=== PATIENT | female | born 1955 | race Caucasian/White ===

== ENCOUNTER 2023-08-18 00:31 | Inpatient (IN) | payer BC, MEDICAID ==
[~2023-08-18] VITALS: Ht 157.5 cm; Wt 73.0 kg
[2023-08-18 01:00] VITALS: BP 60/40; PULSE 62; RESP 16; TEMP 97.3; O2SAT 99
[2023-08-18 01:29] LABS: BASOPHILS # (AUTO) 0.1 K/uL (0.00-0.22); BASOPHILS % (AUTO) 1.3 % (0.0-2.0); EOSINOPHILS # (AUTO) 0.1 K/uL (0-0.4); EOSINOPHILS % (AUTO) 1.5 % (0.0-4.0); HEMATOCRIT 28.5 % (36-48); HEMOGLOBIN 9.8 g/dL (12.0-16.0); LYMPHOCYTES # (AUTO) 1.4 K/uL (2.5-16.5); LYMPHOCYTES % (AUTO) 18.4 % (20.5-51.1); MEAN CORPUSCULAR HEMOGLOBIN 27 pg (27-31); MEAN CORPUSCULAR HGB CONC 34 g/dL (33-37); MONOCYTES # (AUTO) 0.8 K/uL (0.8-1.0); NEUTROPHILS # (AUTO) 5.2 K/uL (1.8-7.7); NEUTROPHILS % (AUTO) 68.8 % (42.2-75.2); PLATELET COUNT (AUTO) 218 K/uL (140-450); RED BLOOD CELL COUNT(AUTO) 3.56 MIL/uL (4.20-5.40); RED CELL DISTRIBUTION WIDTH 15.7 % (11.6-13.7); WHITE BLOOD COUNT (AUTO) 7.6 K/uL (4.8-10.8)
[2023-08-18] MEDS: NACL 0.9% 2,000 ML IV ONE (01:36)
[2023-08-18 01:39] LABS: ANION GAP 15.2 (8-16); CALCIUM 9.4 mg/dL (8.5-10.1); CARBON DIOXIDE 24.6 mmol/L (21-32); CREATININE 1.8 mg/dL (0.6-1.3); POTASSIUM 3.8 mmol/L (3.5-5.1)
[2023-08-18 01:41] LABS: INR 1.07 (0.8-1.2); PROTHROMBIN TIME 11.2 secs (10.8-13.4)
[2023-08-18 01:48] LABS: ALANINE AMINOTRANSFERASE 33 U/L (12-78); ALBUMIN 3.9 g/dL (3.4-5.0); ALKALINE PHOSPHATASE 67 U/L (50-136); ASPARTATE AMINOTRANSFERASE 31 U/L (15-37); BILIRUBIN,DIRECT 0.1 mg/dL (0.0-0.3); LACTIC ACID 1.3 mmol/L (0.4-2.0); TOTAL BILIRUBIN 0.3 mg/dL (0.0-1.0)
[2023-08-18] MEDS ORDERED: [UNRECOGNIZED DRUG - CODE] PO (04:24)
[2023-08-18] MEDS ORDERED: FENO130C9 PO (04:29)
[2023-08-18] MEDS ORDERED: HYDR12.51 PO (04:33)
[2023-08-18] MEDS ORDERED: [UNRECOGNIZED DRUG - CODE] PO (04:35)
[2023-08-18] MEDS ORDERED: DILT30TA18 PO (04:42)
[2023-08-18] MEDS ORDERED: BENA20TA PO (04:44)
[2023-08-18] MEDS ORDERED: SIMV-373 PO (04:46)
[2023-08-18 04:49] LABS: APPEARANCE,URINE CLEAR (CLEAR); BILIRUBIN,URINE NEGATIVE (NEGATIVE); BLOOD, URINE NEGATIVE (NEGATIVE); COLOR,URINE YELLOW (YELLOW); LEUKOCYTE ESTERASE ,URINE NEGATIVE (NEGATIVE); NITRITE, URINE NEGATIVE (NEGATIVE); PROTEIN,URINE NEGATIVE (NEGATIVE); UGLUCOSE 3+ (NEGATIVE); UROBILINOGEN,URINE 0.2 EU/dL (0.2 - 1)
[2023-08-18] MEDS ORDERED: SUCR-34 PO (04:51)
[2023-08-18] MEDS ORDERED: SYN.05 PO (04:51)
[2023-08-18] MEDS ORDERED: CARV6.25 PO (04:51)
[2023-08-18] MEDS ORDERED: NITR0.4T2 SL (05:19)
[2023-08-18] MEDS ORDERED: TIZA4CAP PO (05:22)
[2023-08-18] MEDS ORDERED: PRAM0.5T34 PO (05:25)
[2023-08-18] MEDS ORDERED: SPIR50TA PO (05:27)
[2023-08-18] MEDS ORDERED: PIPERACILLIN/TAZOBACTAM 3.375 GM VIAL IV ONE (06:03)
[2023-08-18] MEDS ORDERED: guaiFENesin DM 200/20 MG-10 ML 10 ML UDC PO PRN (06:05)
[2023-08-18] MEDS ORDERED: DOCUSATE SODIUM 100 MG GELCAP PO PRN (06:05)
[2023-08-18] MEDS ORDERED: ZOLPIDEM 5 MG TAB PO PRN (06:05)
[2023-08-18] MEDS ORDERED: POTASSIUM CHLORIDE 10 MEQ TABER PO PRN (06:05)
[2023-08-18] MEDS: PIPERACILLIN/TAZOBACTAM 3.375 GM in DEXTROSE 5% 50 ML IV ONE (06:09)
[2023-08-18] MEDS: ACETAMINOPHEN EXTRA STRENGTH 500 MG TAB PO ONE (06:19)
[2023-08-18] MEDS: NACL 0.9% 1,000 ML IV SCH (06:56)
[2023-08-18] MEDS: PANTOPRAZOLE 40 MG TABEC PO SCH (09:32)
[2023-08-18] MEDS ORDERED: DEXTROSE 50% 50 ML SYR IVP PRN (12:20)
[2023-08-18] MEDS: BLOOD GLUCOSE MONITORING 1 DEV DEV FS SCH (16:34)
[2023-08-18] MEDS: INSULIN LISPRO SLIDING SCALE 100 UNITS/ML VIAL SUBQ PRN (16:49)
[2023-08-18 21:46] VITALS: RESP 18; O2SAT 100
[2023-08-18] MEDS: NACL 0.9% 500 ML IV ONE (23:32)
[2023-08-18] MEDS: MIDODRINE 5 MG TAB PO ONE (23:35)
[2023-08-19] VITALS (13 sets, daily range): BP systolic 74–207; BP diastolic 40–74; PULSE 59–94; RESP 12–22; TEMP 97.6–98.8; O2SAT 94–98
[2023-08-19] MEDS ORDERED: NOREPINEPHRINE 4 MG in DEXTROSE 5% 250 ML IV PRN (02:20)
[2023-08-19] MEDS: MIDODRINE 5 MG TAB PO SCH (05:47)
[2023-08-19 06:56] LABS: ALBUMIN 3.4 g/dL (3.4-5.0); ANION GAP 14.1 (8-16); CALCIUM 8.3 mg/dL (8.5-10.1); CARBON DIOXIDE 22.8 mmol/L (21-32); CREATININE 1.2 mg/dL (0.6-1.3); POTASSIUM 3.9 mmol/L (3.5-5.1); TOTAL BILIRUBIN 0.3 mg/dL (0.0-1.0)
[2023-08-19 07:14] LABS: BASOPHILS % (AUTO) 0.6 % (0.0-2.0); EOSINOPHILS # (AUTO) 0.1 K/uL (0-0.4); EOSINOPHILS % (AUTO) 2.7 % (0.0-4.0); HEMATOCRIT 25.1 % (36-48); HEMOGLOBIN 8.9 g/dL (12.0-16.0); LYMPHOCYTES # (AUTO) 1.2 K/uL (2.5-16.5); MEAN CORPUSCULAR HEMOGLOBIN 28 pg (27-31); MEAN CORPUSCULAR HGB CONC 35 g/dL (33-37); MEAN CORPUSCULAR VOLUME 79.3 fL (80-94); MONOCYTES # (AUTO) 0.3 K/uL (0.8-1.0); MONOCYTES % (AUTO) 6.1 % (1.7-9.3); NEUTROPHILS # (AUTO) 2.6 K/uL (1.8-7.7); NEUTROPHILS % (AUTO) 61.6 % (42.2-75.2); PLATELET COUNT (AUTO) 159 K/uL (140-450); RED BLOOD CELL COUNT(AUTO) 3.16 MIL/uL (4.20-5.40); RED CELL DISTRIBUTION WIDTH 15.7 % (11.6-13.7); WHITE BLOOD COUNT (AUTO) 4.2 K/uL (4.8-10.8)
[2023-08-19] MEDS: ACETAMINOPHEN 325 MG TAB PO PRN (11:38)
[2023-08-19] MEDS: SUCRALFATE 1 GM TAB PO SCH (13:36)
[2023-08-19] MEDS: SUCRALFATE 1 GM TAB ONE (13:36)
[2023-08-19] MEDS: SPIRONOLACTONE 25 MG TAB PO SCH (13:44)
[2023-08-19] MEDS: MORPHINE SULFATE 2 MG/ML SYR IVP PRN (14:15)
[2023-08-19] MEDS: hydrALAZINE 20 MG/ML VIAL IVP PRN (15:24)
[2023-08-19] MEDS ORDERED: diphenhydrAMINE 50 MG/ML VIAL IVP SCH (17:10)
[2023-08-19] MEDS: DILTIAZEM 30 MG TAB PO SCH (17:52)
[2023-08-19] MEDS: ONDANSETRON 4 MG/2 ML VIAL IM/IVP PRN (19:22)
[2023-08-20] VITALS: BP_SYST 105; BP_SYST 182; BP_DIAS 52; BP_DIAS 86; PULSE 77; PULSE 94; PULSE 96; RESP 14; TEMP 98; TEMP 99.8; O2SAT 93; O2SAT 94
[2023-08-20 04:00] VITALS: BP 150/74; PULSE 82; PULSE 99; RESP 17; TEMP 98.5; O2SAT 98
[2023-08-20 06:27] LABS: HEMATOCRIT 30.4 % (36-48); HEMOGLOBIN 10.2 g/dL (12.0-16.0); MEAN CORPUSCULAR HEMOGLOBIN 27 pg (27-31); MEAN CORPUSCULAR HGB CONC 34 g/dL (33-37); MEAN CORPUSCULAR VOLUME 80.8 fL (80-94); PLATELET COUNT (AUTO) 194 K/uL (140-450); RED BLOOD CELL COUNT(AUTO) 3.77 MIL/uL (4.20-5.40); RED CELL DISTRIBUTION WIDTH 15.5 % (11.6-13.7); WHITE BLOOD COUNT (AUTO) 13.3 K/uL (4.8-10.8)
[2023-08-20 06:43] LABS: ALBUMIN 3.6 g/dL (3.4-5.0); ANION GAP 19.3 (8-16); CALCIUM 8.5 mg/dL (8.5-10.1); CARBON DIOXIDE 17.2 mmol/L (21-32); CREATININE 1.2 mg/dL (0.6-1.3); POTASSIUM 3.5 mmol/L (3.5-5.1); TOTAL BILIRUBIN 0.7 mg/dL (0.0-1.0); TOTAL PROTEIN, SERUM 6.5 g/dL (6.4-8.2)
[2023-08-20 07:12] LABS: BASOPHILS % (MANUAL) 0 % (0-2); EOSINOPHILS % (MANUAL) 0 % (0-4); LYMPHOCYTES % (MANUAL) 3 % (20-46); MONOCYTES % (MANUAL) 2 % (5-12); PLATELET ESTIMATE ADEQUATE
[2023-08-20 08:00] VITALS: BP 97/43; PULSE 77; PULSE 97; RESP 18; TEMP 96; O2SAT 97
[2023-08-20 12:00] VITALS: BP 116/50; PULSE 85; RESP 18; TEMP 98.6; O2SAT 96
[2023-08-20] MEDS: diphenhydrAMINE 50 MG/ML VIAL IVP PRN (15:59)
[2023-08-20 16:00] VITALS: BP 130/59; PULSE 77; RESP 18; TEMP 98.5; O2SAT 96
[2023-08-20 20:00] VITALS: BP 99/53; PULSE 76; PULSE 79; RESP 18; TEMP 97.9; O2SAT 95
[2023-08-21] VITALS: BP 105/58; PULSE 73; RESP 18; TEMP 98; O2SAT 95
[2023-08-21 00:17] VITALS: PULSE 72
[2023-08-21 04:00] VITALS: BP 117/73; PULSE 65; RESP 19; TEMP 97.3; O2SAT 94
[2023-08-21 05:40] LABS: BASOPHILS % (AUTO) 0.2 % (0.0-2.0); EOSINOPHILS # (AUTO) 0.2 K/uL (0-0.4); EOSINOPHILS % (AUTO) 2.3 % (0.0-4.0); HEMATOCRIT 25.4 % (36-48); HEMOGLOBIN 8.8 g/dL (12.0-16.0); LYMPHOCYTES # (AUTO) 0.8 K/uL (2.5-16.5); LYMPHOCYTES % (AUTO) 11.9 % (20.5-51.1); MEAN CORPUSCULAR HEMOGLOBIN 28 pg (27-31); MEAN CORPUSCULAR HGB CONC 35 g/dL (33-37); MEAN CORPUSCULAR VOLUME 79.6 fL (80-94); MONOCYTES # (AUTO) 0.3 K/uL (0.8-1.0); MONOCYTES % (AUTO) 3.8 % (1.7-9.3); NEUTROPHILS # (AUTO) 5.6 K/uL (1.8-7.7); NEUTROPHILS % (AUTO) 81.8 % (42.2-75.2); PLATELET COUNT (AUTO) 142 K/uL (140-450); WHITE BLOOD COUNT (AUTO) 6.9 K/uL (4.8-10.8)
[2023-08-21 06:43] LABS: ALBUMIN 3.2 g/dL (3.4-5.0); ANION GAP 13.9 (8-16); CALCIUM 8.4 mg/dL (8.5-10.1); CARBON DIOXIDE 22.9 mmol/L (21-32); CREATININE 1.1 mg/dL (0.6-1.3); POTASSIUM 3.8 mmol/L (3.5-5.1); TOTAL BILIRUBIN 0.4 mg/dL (0.0-1.0); TOTAL PROTEIN, SERUM 6.3 g/dL (6.4-8.2)
[2023-08-21 08:00] VITALS: BP 106/71; PULSE 63; PULSE 67; PULSE 81; RESP 18; TEMP 98.4; O2SAT 81; O2SAT 96
[2023-08-21] MEDS: HYDROcodone/APAP 7.5/325 MG 1 TAB PO PRN (10:05)
[2023-08-21] MEDS: ASPIRIN 81 MG TAB.CHEW PO SCH (10:05)
[2023-08-21 10:14] VITALS: PULSE 207
[2023-08-21 12:00] VITALS: BP 133/57; PULSE 67; PULSE 69; RESP 18; TEMP 97.9; O2SAT 96
== END 2023-08-21 14:56 | disposition home or self-care (01) | DRG 682 ==
LOC: MED 00:31 → MTU 06:04 → MIC 08-19 01:13 → MTU 08-20 06:30
PROVIDERS: ADMIT Student in an Organized Health Care Education/Training Program; ATTEND Student in an Organized Health Care Education/Training Program
DX: N17.0 Acute kidney failure with tubular necrosis (principal); R57.1 Hypovolemic shock; I95.2 Hypotension due to drugs; E11.65 Type 2 diabetes mellitus with hyperglycemia; E86.0 Dehydration; I25.10 Atherosclerotic heart disease of native coronary artery without angina pectoris; Z95.5 Presence of coronary angioplasty implant and graft; Z95.0 Presence of cardiac pacemaker; Z79.899 Other long term (current) drug therapy; T50.915A Adverse effect of multiple unspecified drugs, medicaments and biological substances, initial encounter; E86.1 Hypovolemia
CPT/HCPCS: 36415; 70450; 71045; 71260; 80048; 80053; 80076; 81003; 82948; 83605; 84484; 85025; 85610; 87040; 87081; 87086; 92526; 93005; 96361; 96365; 99291; J0360; J1200; J1644; J1815; J2270; J2405; J2543; Q0092; Q9967